=== PATIENT | male | born 1955 | race Caucasian/White ===

== ENCOUNTER 2021-04-19 21:37 | Emergency (ER) | payer MEDICARE, SELFPAY ==
[2021-04-19 21:42] VITALS: BP 149/91; PULSE 65; RESP 16; TEMP 37; O2SAT 98; BMI 44.1
--- NOTE | 2021-04-19 21:57 | ED_ITS ---
HPI - Alcohol General Chief Complaint: ETOH/Substance Use Stated Complaint: ETOH Time Seen by Provider: 04/19/21 21:57 Source: patient and EMS Mode of arrival: EMS Limitations: no limitations History of Present Illness HPI narrative: 66-year-old male came in by ambulance for evaluation of fall while been drinking alcohol. Patient admitted to drinking alcohol last night, patient fell from standing, eased his fall, mild head injury, no LOC, no headache. Patient in the emergency department is awake, alert, sober despite drinking alcohol, walking steady gait. Patient was GCS of 15. Related Data Allergies Allergy/AdvReac Type Severity Reaction Status Date / Time lisinopril [LISINOPRIL] Allergy Severe HYPERKALEMI Unverified 08/08/20 15:14 A fluticasone [FLUTICASONE] Allergy Intermediate ASTHMA Unverified 08/08/20 15:14 LIKE SYMPTOMS ANTIBIOTIC FOR UTI-UNSURE OF Allergy Severe DEBILITATING Uncoded 08/08/20 15:14 NAME HEADACHE Review of Systems Review of Systems: All other systems are reviewed and are negative Constitutional: Reports as per HPI and Reports no additional constitutional complaints Eyes: Reports as per HPI and Reports no additional eye complaints Reports system reviewed and no additional complaints, except as documented Cardiovascular: Reports as per HPI and Reports no additional cardiovascular complaints Respiratory: Reports as per HPI and Reports no additional respiratory complaints Gastrointestinal: Reports as per HPI and Reports no additional gastrointestinal complaints Genitourinary: Reports no additional female genitourinary complaints Musculoskeletal: Reports no additional musculoskeletal complaints Skin/Breast: Reports system reviewed and no additional complaints, except as docu Psychiatric: Reports no additional psychiatric complaints Endocrine: Reports no additional endocrine complaints Hematologic/Lymphatic: Reports no additional hematologic/lymphatic complaints Allergic/Immunologic: Reports no additional allergic/immunologic complaints Reports system reviewed and no additional complaints, except as documented and Reports Abnormal speech present [facility] Past Medical History Medical History HTN (hypertension) Social History Social History Advance Directives: No Advance Directives Information Provided: Yes Physical Exam Vital Signs: Vital Signs: Last Vital Signs Temp 98.6 F 04/19/21 21:42 Pulse 65 04/19/21 21:42 Resp 16 04/19/21 21:42 BP 149/91 H 04/19/21 21:42 Pulse Ox 98 04/19/21 21:42 Body Mass Index 44.1 Vital signs have been reviewed as appeared to be correct. Blood pressure normal. Heart rate normal. Respiration rate normal. Temperature normal. Oxygen saturation normal. Appearance: Alert. Oriented X3. No acute distress. Head: Normal external exam. Normocephalic. Atraumatic. No Ceja signs noted. No raccoon eyes noted Eyes: PERRLA. EOMI. Conjunctiva and sclera normal. Eyelids normal. ENT: TM's Normal. Pharynx normal. Uvula midline. Moist mucous membranes. No trismus noted. No drooling noted. No muffled voice noted. Neck: Normal inspection. Neck supple. FROM. No adenopathy. Thyroid Normal. No meningeal signs. No neck mass noted. CVS: Normal heart rate and rhythm. Heart sound normal. No murmurs noted. Pulses normal throughout. Respiratory: No respiratory distress. Painless inspiration. Breath sounds normal. No wheezes/rales/rhonchi noted. Chest nontender. No accessory muscle usage noted or decreased air movement noted. Abdomen: Soft and nontender. Bowel sounds normal in all 4 quadrants. No distention noted. No organomegaly noted. No visible injury noted. Back: No CVA tenderness. Full range of motion noted. Skin: Skin warm and dry. Normal skin color. Normal skin turgor. No rashes/lesions/lacerations noted. Extremities: No lower extremity edema. Extremities exhibit normal range of motion. Extremities nontender. Neuro: Oriented X 3. No motor deficit. No sensory deficit. Reflexes normal. GCS 15 Course Course Course Narrative: 66-year-old male came in for evaluation of fall at a bar, patient slightly intoxicated with alcohol but patient is awake with a GCS of 15, patient was kept for 8 hour observation in the emergency department, patient remained with intact neuro exam and GCS remained 15. Discharged with a sober adult. Discharge Plan Discharge Clinical Impression: Alcoholic intoxication Qualifiers: Complication of substance-induced condition: uncomplicated Qualified Code(s): F10.920 - Alcohol use, unspecified with intoxication, uncomplicated Fall Qualifiers: Encounter type: initial encounter Qualified Code(s): W19.XXXA - Unspecified fall, initial encounter Patient Disposition: Home, Self-Care Instructions: Head Injury (ED) Referrals: Keshav Rene MD [Primary Care Provider] - 2 days
--- NOTE | 2021-04-20 00:04 | PC.NURSE ---
SPK W/PTS WHO SOUNDED VERY INTOXICATED TO THIS RN. MADE AWARE PT WILL BE READY FOR D/C AT 0600. PT OTHERWISE CAN PROVIDE SOBER RIDE HOME AND BE D/C SOONER
[2021-04-20 04:27] VITALS: BP 140/80; PULSE 80; RESP 16; TEMP 36.7; O2SAT 97
== END 2021-04-20 04:38 | disposition home or self-care (01) ==
PROVIDERS: Emergency Provider Emergency Medicine; PCP Internal Medicine
DX: S09.90XA Unspecified injury of head, initial encounter (principal); F10.920 Alcohol use, unspecified with intoxication, uncomplicated; G44.309 Post-traumatic headache, unspecified, not intractable; R40.2410 Glasgow coma scale score 13-15, unspecified time; W01.0XXA Fall on same level from slipping, tripping and stumbling without subsequent striking against object, initial encounter; Y93.9 Activity, unspecified; Y92.9 Unspecified place or not applicable; Y99.9 Unspecified external cause status; Z79.899 Other long term (current) drug therapy
CPT/HCPCS: 99284